=== PATIENT | female | born 1960 | race Caucasian/White ===

== ENCOUNTER 2018-11-24 14:38 | Emergency (ER) | payer BC ==
[~2018-11-24] VITALS: Ht 177.8 cm; Wt 83.9 kg
[2018-11-24] MEDS ORDERED: Vistaril50 MG PO (16:29)
[2018-11-24] MEDS ORDERED: Permethrin60 GM TOP (16:29)
== END 2018-11-24 16:36 | disposition home or self-care (01) ==
LOC: ER 14:38
DX: S40.862A Insect bite (nonvenomous) of left upper arm, initial encounter (principal); S40.861A Insect bite (nonvenomous) of right upper arm, initial encounter; S80.862A Insect bite (nonvenomous), left lower leg, initial encounter; S80.861A Insect bite (nonvenomous), right lower leg, initial encounter; W57.XXXA Bitten or stung by nonvenomous insect and other nonvenomous arthropods, initial encounter; Z85.3 Personal history of malignant neoplasm of breast; Z91.030 Bee allergy status; Z88.2 Allergy status to sulfonamides; Z91.018 Allergy to other foods; Z79.899 Other long term (current) drug therapy
CPT/HCPCS: 99282

== ENCOUNTER 2019-11-06 02:17 | Inpatient (IN) | payer BC ==
[~2019-11-06] VITALS: Ht 177.8 cm; Wt 87.3 kg
[~2019-11-06 02:17] MED LIST: Permethrin60 GM TOP; Vistaril50 MG PO
[2019-11-06 02:55] LABS: BASOPHILS ABSOLUTE AUTO 0.06 K/mm3 (0.00-0.23); BASOPHILS PERCENT AUTO 1 % (0-2); EOSINOPHILS ABSOLUTE AUTO 0.12 K/mm3 (0.00-0.68); EOSINOPHILS PERCENT AUTO 1 % (0-6); Hematocrit 41.6 % (33.0-51.0); Hemoglobin 14.2 g/dL (11.5-16.0); IMMATURE GRAN ABSOLUTE AUTO 0.03 K/mm3 (0.00-0.10); IMMATURE GRAN PERCENT AUTO 0 % (0-1); LYMPHOCYTES ABSOLUTE AUTO 2.01 K/mm3 (0.84-5.20); LYMPHOCYTES PERCENT AUTO 21 % (21-46); MONOCYTES ABSOLUTE AUTO 0.51 K/mm3 (0.16-1.47); MONOCYTES PERCENT AUTO 5 % (4-13); Mean Corpuscular HGB 32.1 pg (26.0-34.0); Mean Corpuscular HGB Conc 34.1 g/dL (31.5-36.5); Mean Corpuscular Volume 94 fL (80-100); Mean Platelet Volume 11.2 fL (9.1-12.4); NEUTROPHILS ABSOLUTE AUTO 6.95 K/mm3 (1.96-9.15); NEUTROPHILS PERCENT AUTO 72 % (41-73); Platelet Count 360 K/mm3 (150-400); RDW Coefficient Variation 12.3 % (11.7-14.2); RDW Standard Deviation 42.5 fL (35.1-46.3); Red Blood Cell Count 4.42 M/mm3 (3.80-5.20); White Blood Cell Count 9.68 K/mm3 (4.00-11.30)
[2019-11-06 03:15] LABS: Alanine Aminotransfer (ALT/SGP 81 U/L (12-78); Albumin, Blood 3.9 g/dL (3.4-5.0); Albumin/Globulin Ratio 1.3 (0.8-1.8); Alk Phos 139 U/L (50-136); Anion Gap 11 mmol/L (6-16); Aspartate Aminotrans (AST/SGOT 44 U/L (12-37); Bilirubin, Total 1.6 mg/dL (0.1-1.0); Blood Urea Nitrogen 16 mg/dL (8-24); CO2, Blood 21 mmol/L (21-32); Calcium, Blood 9.1 mg/dL (8.5-10.1); Chloride, Blood 107 mmol/L (98-108); Creatinine, Blood 0.89 mg/dL (0.40-1.00); Globulin, Blood 3.1 g/dL (2.2-4.0); Glomerular Filtration Rate >60 (60-); Glucose, Blood 126 mg/dL (70-99); Potassium, Blood 3.7 mmol/L (3.5-5.5); Sodium, Blood 139 mmol/L (136-145); Troponin I <0.015 ng/mL (0.000-0.040)
[2019-11-06 04:15] LABS: Magnesium, Blood 2.1 mg/dL (1.6-2.4)
[2019-11-06 04:17] LABS: Thyroid Stimulating Hormone 4.51 uIU/mL (0.360-4.800)
--- NOTE | 2019-11-06 07:45 | NUR ---
ASSUMED CARE: PT RESTING QUIETLY IN BED. CARDIZEM GTT AT 20MG/HR. RN WAS AT BEDSIDE ASSISTING TO RESTROOM. NO FURTHER NEEDS OR CONCERNS AT THIS TIME.
[2019-11-06 07:59] LABS: Adenovirus Not Detected (NOT DETECT); Bordetella pertussis Not Detected (NOT DETECT); Chlamydophila pneumoniae Not Detected (NOT DETECT); Coronavirus 229E Not Detected (NOT DETECT); Coronavirus HKU1 Not Detected (NOT DETECT); Coronavirus NL63 Not Detected (NOT DETECT); Coronavirus OC43 Not Detected (NOT DETECT); Human Metapneumovirus Not Detected (NOT DETECT); Human Rhinovirus/Enterovirus Not Detected (NOT DETECT); Influenza A/2009-H1 Not Detected (NOT DETECT); Influenza A/H1 Not Detected (NOT DETECT); Influenza A/H3 Not Detected (NOT DETECT); Influenza B Not Detected (NOT DETECT); Mycoplasma pneumoniae Not Detected (NOT DETECT); Parainfluenza Virus 1 Not Detected (NOT DETECT); Parainfluenza Virus 2 Not Detected (NOT DETECT); Parainfluenza Virus 3 Not Detected (NOT DETECT); Parainfluenza Virus 4 Not Detected (NOT DETECT); Respiratory Syncytial Virus Not Detected (NOT DETECT)
[2019-11-06 08:19] LABS: U Amphetamine Screen Not Detected; U Barbituate Screen Not Detected; U Benzodiazapine Screen Not Detected; U Buprenorphine Screen Not Detected; U Cannabinoids Screen DETECTED; U Cocaine Screen Not Detected; U Methadone Screen Not Detected; U Methamphetamine Screen Not Detected; U Opiates Screen Not Detected; U Oxycodone Screen Not Detected; U Phencyclidine Screen Not Detected; U Propoxyphene Screen Not Detected
--- NOTE | 2019-11-06 11:33 | NUR ---
DR RICHARDS WAS IN TO SEE PT. DISCUSSED PT'S HISTORY. DR ORDERED ORAL CARDIAC MEDS FOR RATE MANAGEMENT. STATES CARDIAC CONSULT WOULD DEPEND ON RESULTS OF ECHO.
--- NOTE | 2019-11-06 12:39 | NUR ---
Echocardiogram with Definity completed by Chely Ibarra RDCS.
--- NOTE | 2019-11-06 18:13 | NUR ---
SHIFT SUMMARY: PT AHS BEEN OFF CARDIZEM GTT SINCE 1417 WITH HR CURRENTLY AFIB 92. C/O HEADACHE AND NAUSEA WHICH SHE WAS MEDICATED FOR. STATES HELPED A LITTLE. ECHO COMPLETED THIS SHIFT. PT SOB ON EXERTION WITH 3L O2 NEEDED. NO FURTHER NEEDS OR COCNERNS AT THIS TIME.
--- NOTE | 2019-11-06 22:34 | NUR ---
PATIENT RESTLESS C/O SALMERON AND FEELING ANXIOUS. LAURYN YEAST CAKE CUTTER CALLED AND ONE TIME ATIVAN ORDER OBTAINED. BIOX DOWN TO 88% WHEN SLEEPING OXYGEN INCREASED TO 5L/NC WHILE SLEEPING. CARDIZEM DRIP REMAINS OFF AFIB CONTINUES AT CONTROLLED RATE. PATIENT AMB TO TOILET WITH MIN ASSIST
[2019-11-07 03:28] LABS: BASOPHILS ABSOLUTE AUTO 0.04 K/mm3 (0.00-0.23); BASOPHILS PERCENT AUTO 1 % (0-2); EOSINOPHILS ABSOLUTE AUTO 0.13 K/mm3 (0.00-0.68); EOSINOPHILS PERCENT AUTO 2 % (0-6); Hematocrit 38.2 % (33.0-51.0); Hemoglobin 13.2 g/dL (11.5-16.0); IMMATURE GRAN ABSOLUTE AUTO 0.02 K/mm3 (0.00-0.10); IMMATURE GRAN PERCENT AUTO 0 % (0-1); LYMPHOCYTES ABSOLUTE AUTO 1.82 K/mm3 (0.84-5.20); LYMPHOCYTES PERCENT AUTO 24 % (21-46); MONOCYTES ABSOLUTE AUTO 0.46 K/mm3 (0.16-1.47); MONOCYTES PERCENT AUTO 6 % (4-13); Mean Corpuscular HGB 32.6 pg (26.0-34.0); Mean Corpuscular HGB Conc 34.6 g/dL (31.5-36.5); Mean Corpuscular Volume 94 fL (80-100); NEUTROPHILS ABSOLUTE AUTO 5.23 K/mm3 (1.96-9.15); NEUTROPHILS PERCENT AUTO 68 % (41-73); Platelet Count 318 K/mm3 (150-400); RDW Coefficient Variation 12.2 % (11.7-14.2); RDW Standard Deviation 42.5 fL (35.1-46.3); Red Blood Cell Count 4.05 M/mm3 (3.80-5.20)
[2019-11-07 03:43] LABS: Anion Gap 7 mmol/L (6-16); Blood Urea Nitrogen 16 mg/dL (8-24); Bun/Creatinine Ratio 18.3 (12.0-20.0); CO2, Blood 25 mmol/L (21-32); Calcium, Blood 8.9 mg/dL (8.5-10.1); Chloride, Blood 106 mmol/L (98-108); Creatinine, Blood 0.87 mg/dL (0.40-1.00); Glomerular Filtration Rate >60 (60-); Glucose, Blood 113 mg/dL (70-99); Potassium, Blood 3.7 mmol/L (3.5-5.5); Sodium, Blood 138 mmol/L (136-145)
--- NOTE | 2019-11-07 05:50 | NUR ---
SUMMARY PATIENT SLEEPING OFF AND ON T/O NIGHT. VERBALIZED GOOD RELIEF OF SALMERON AFTER ATIVAN AND TYLENOL. MONITOR CONTINUES TO SHOW AFIB WITH RATE 90-120'S. ON 4L/NC OXYGEN WITH BIOX 90-96%
--- NOTE | 2019-11-07 19:21 | NUR ---
SUMMARY Assumed care of pt at 0700. Bedside report recevied from Sara ESTRADA. Pt A&O x 4. Independent in room to use bedside commode. Steady on feet. Pt initially on 4 LPM NC. Titrated to room air by Dr Haynes. Provider stated plan for patient to have cardiology consultation due to low EF. Dr Napier in to see pt stated plan for right & left heart cath and JACKELINE tomorrow. Pt to be NPO at midnight. No acute changes to shift assessment. Report given to Moreno ESTRADA.
--- NOTE | 2019-11-07 20:00 | NUR ---
ASSUMPTION OF CARE: PT A&O. AWAKE IN BED. IN AFIB WITH RVR. SBP IN THE 100S, HR 120-130. LUNG SOUNDS ARE CLEAR, DIM IN BASES. SPO2 >90% ON RA. PT IS ABLE TO VOID AND USE BEDSIDE COMMODE ON OWN. SKIN IS CLEAR AND INTACT. 2 PIVS. BOTH PATENT AND SL. PT HAS NO COMPLAINTS AT THIS TIME. WILL CONTINUE TO MONITOR
[2019-11-08 04:02] LABS: Anion Gap 8 mmol/L (6-16); Blood Urea Nitrogen 21 mg/dL (8-24); Bun/Creatinine Ratio 22.4 (12.0-20.0); CO2, Blood 29 mmol/L (21-32); Calcium, Blood 9.4 mg/dL (8.5-10.1); Chloride, Blood 102 mmol/L (98-108); Creatinine, Blood 0.94 mg/dL (0.40-1.00); Glomerular Filtration Rate >60 (60-); Glucose, Blood 110 mg/dL (70-99); Potassium, Blood 3.5 mmol/L (3.5-5.5); Sodium, Blood 139 mmol/L (136-145)
--- NOTE | 2019-11-08 04:52 | NUR ---
PT TOLERATING WEAN WELL. PRECEDEX LEFT ON STANDBY AND PROPOFOL REMAINS AT 20MCG. PT ABLE TO FOLLOW COMMANDS. WILL CONTINUE TO MONITOR
--- NOTE | 2019-11-08 06:17 | NUR ---
SHIFT SUMMARY: NO ACUTE CHANGES T/O SHIFT. SLEPT T/O SHIFT. PT REMAINS IN AFIB. HR 110-130. SBP IN THE 80-100S. LUNG SOUNDS CLEAR. PT HAS HAD MULTIPLE UNMEASURED VOIDS AND BM TH/O SHIFT.PT HAS BEEN NPO SINCE MIDNIGHT. SHE DID JUST HAVE A SEVERAL BEAT RUN OF VTACH. STRIP IN CHART. WILL PASS REPORT TO ONCOMING SHIFT
--- NOTE | 2019-11-08 15:31 | NUR ---
TRANSFER Pt transferred to room 359 accompanied by Kendra WEBER. Pt transferred to new room via wheelchair. Chart, medications, and belongings transferred with patient. LLE dressing changed by this RN.
--- NOTE | 2019-11-08 18:06 | NUR ---
SUMMARY Assumed care of pt at 0700. Bedside report received from Moreno ESTRADA. Pt initially on room air. Afib/Aflutter per monitor, with rate between 125 and 135. Pt NPO for planned dairy and food laboratory assistant procedure. This RN placed call to Dr Napier to discuss AM PO meds. Provider stated it is okay for these meds to be given. Pt to dairy and food laboratory assistant at 0930. Returned to room before noon. Per dairy and food laboratory assistant staff, pt had JACKELINE, attempted cardioversion and coronary angiogram. Right heart cath not done. Pt had right TR band that reportedly had 9 mL of air. Color, sensation, pulses, capillary refill equal BUE. Pt had NC in place. Lethargic. Placed on 2 LPM NC to maintain SpO2 90% or greater. HR 85-95. Amiodarone drip started per telephone order from Dr Napier. Pt transferred to PCU 15 at 1750. Report given to José Miguel ESTRADA. Discussed amiodarone titration upcoming at 1830. Both RNs assessed TR site at bedside. No changes to initial assessment. Pt on room air. SpO2 90% or greater.
--- NOTE | 2019-11-08 18:48 | NUR ---
SHIFT NOTE PT ARRIVED FROM ICU JUST BEFORE 1800. PT WITH AMIODERONE GTT INFUSING, WHICH HAS BEEN TITRATED TO HALF ATER A 6 HOUR INFUSION AT 33.3 PT IS A/O X4. PT RESTING WELL IN BED. TACHYPNEA NOTED ON ARRIVAL, PT ON RA, TAKING IN FULL SENTENCES. DENIES ANY CP. PT WITH WELL RECOVERED ANGIO SITE TO RFA, NO ACTIVE BLEEDING NOTED.
--- NOTE | 2019-11-08 19:55 | NUR ---
ASSUMED CARE report recieved from SEAN Orta at approx 1900. Pt alert and oriented, VSS, r radial access site with small amount of blood on tegaderm. this site was visualized with offgoing RN at time of shift change. Arm board in place. pt is conversing appropriately but has anxiety and a phobia of needles. LAC PIV leaking and D/C'd, RFA PIV placed by charger operator helper and infusing amiodarone gtt infusing at 0.5 mg/hr - rate verified with offgoing rn at time of shift change. pt ambulates to bathroom with 1 assist, slight dyspnea noted with conversation and exertion but requires no additional oxygen. pt is RA. See shift assessment for detailed systems assessment. Will continue to monitor.
[2019-11-09 04:21] LABS: Anion Gap 10 mmol/L (6-16); Blood Urea Nitrogen 24 mg/dL (8-24); CO2, Blood 23 mmol/L (21-32); Calcium, Blood 9.3 mg/dL (8.5-10.1); Chloride, Blood 103 mmol/L (98-108); Creatinine, Blood 0.96 mg/dL (0.40-1.00); Glomerular Filtration Rate >60 (60-); Glucose, Blood 120 mg/dL (70-99); Sodium, Blood 136 mmol/L (136-145)
--- NOTE | 2019-11-09 04:58 | NUR ---
PT CONVERTED FROM AFIB 90-110 TO SINUS JENNIFER AT 54 AT 0445. VSS. ASYMPTOMATIC BRADYCARDIA.AMIODARONE GTT ON STANDBY WHILE THIS RN CALLED PHOTO LAB TECHNICIAN MD JIMMY TO UPDATE PROVIDER ON RATE. PER PROVIDER, CONTINUE AMIODARONE GTT AT THIS TIME AND MONITOR FOR FUTHER BRADYCARDIA. REDUCER AWARE, GTT INFUSING PER ORDERS.
--- NOTE | 2019-11-09 05:08 | NUR ---
Shift Summary VSS this shift, pt remains alert and oriented and with no changes to oxygen demand. Pt initially in atrial fibrillation with rates 90-110 on an amiodarone gtt infusing at 0.5 mg/hr. At approx 0445, pt converted to Sinus Bradycardia in 50's. See previous note for MD communication. Gtt continues to infuse at 0.5 mg/hr per Drs orders. Pt ambulates with minimal assistance to bathroom. No acute changes overnight execpt what has previously been noted. No changes from shift assessment. No acute concerns to note from overnight. Will continue to monitor.
[2019-11-09] MEDS ORDERED: Pacerone400 MG PO (09:28)
[2019-11-09] MEDS ORDERED: METO50ER PO (09:30)
[2019-11-09] MEDS ORDERED: Amiodarone HCl200 MG PO (09:30)
[2019-11-09] MEDS ORDERED: POTA10T PO (09:31)
[2019-11-09] MEDS ORDERED: XARELTO20 MG PO (09:31)
[2019-11-09] MEDS ORDERED: FURO40 PO (09:32)
[2019-11-09] MEDS ORDERED: Prinivil10 MG PO (09:50)
--- NOTE | 2019-11-09 14:30 | NUR ---
PT D/C WITH ALL BELONGINGS WITH HER. PT EXPRESSED UNDERSTANDING OF HER MEDICATION DOSE CHANGES, AND HER NEW MEDICATIONS AND SIDE EFFECTS. IV D/C INTACT, PRESSURE DRESSED PT EDUCATED TO REMOVE DRESSING IN 20 MIN. PT EXPRESSED UNDERSTANDING OF DC TEACHING, SHEA [place]
== END 2019-11-09 14:29 | disposition home or self-care (01) | DRG 286 ==
LOC: ER 02:17 → ICUW 02:18 → ERHOLD 02:18 → ICUW 02:19 → ER 03:30 → ICUW 03:30 → ERHOLD 03:30 → ICUW 06:20 → ERHOLD 06:20 → ICUW 06:20 → PCU 11-08 17:30
PROVIDERS: Emergency Medicine; Internal Medicine; ADMIT Family Medicine
PROC: 8E0ZXY6 Isolation (ICD-10-PCS; principal; 2019-11-07)
PROC: 4A023N7 Measurement of Cardiac Sampling and Pressure, Left Heart, Percutaneous Approach (ICD-10-PCS; 2019-11-08)
PROC: 5A2204Z Restoration of Cardiac Rhythm, Single (ICD-10-PCS; 2019-11-08)
PROC: B245ZZ4 Ultrasonography of Left Heart, Transesophageal (ICD-10-PCS; 2019-11-08)
PROC: B2111ZZ Fluoroscopy of Multiple Coronary Arteries using Low Osmolar Contrast (ICD-10-PCS; 2019-11-08)
DX: I50.21 Acute systolic (congestive) heart failure (principal); J96.01 Acute respiratory failure with hypoxia; I42.8 Other cardiomyopathies; I48.0 Paroxysmal atrial fibrillation; Z87.891 Personal history of nicotine dependence; F10.10 Alcohol abuse, uncomplicated; I27.20 Pulmonary hypertension, unspecified; F12.90 Cannabis use, unspecified, uncomplicated
CPT/HCPCS: 0099U; 36415; 71045; 71260; 76937; 80048; 80053; 83690; 83735; 83880; 84443; 84484; 85025; 92960; 93005; 93010; 93312; 93325; 93458; 96365; 96366; 96375; 96376; 99152; 99153; 99285-25; A9270; C1769; C1894; C8929; G0378; J0282; J1644; J1650; J1940; J2060; J2250; J2405; J3010; J7030; J7060; Q9957; Q9967; U0003